=== PATIENT | female | born 1960 | race Caucasian/White ===

== ENCOUNTER 2017-05-27 09:12 | Emergency (ER) | payer SELFPAY ==
[2017-05-27 09:44] VITALS: BP 126/65
--- NOTE | 2017-05-27 10:10 | UC ---
Back Pain HPI - HPI Summary HPI Summary: she was picking up patient three days ago and had sudden right lateral back pain. She denies prior injury like this but did have sciatica in the past. no worrisome symptoms like radiation down the legs, weakness, numbness, saddle anesthesia. - History of Current Complaint Chief Complaint: UCBackPain Stated Complaint: MID/LOWER BACK PAIN WC Time Seen by Provider: 05/27/17 10:00 ?: No Onset/Duration: Sudden Onset, Lasting Days Timing: Constant Severity Initially: Moderate Severity Currently: Mild Back Pain: Is Discrete @ - right lateral mid back. Character: Dull, Aching Aggravating: Movement, Lifting Alleviating: Rest Associated Signs And Symptoms: Positive: Negative - Allergies/Home Medications Allergies/Adverse Reactions: Allergies Allergy/AdvReac Type Severity Reaction Status Date / Time No Known Allergies Allergy Verified 05/27/17 09:33 Home Medications: Home Medications Atorvastatin* [Lipitor*] 20 mg PO DAILY 05/27/17 [History Confirmed 05/27/17] PMH/Surg Hx/FS Hx/Imm Hx Previously Healthy: No - prior sciatica. - Surgical History Surgical History: Yes Surgery Procedure, Year, and Place: C SECTIONS THREE - Family History Known Family History: Positive: Hypertension, Diabetes - Social History Occupation: Employed Full-time Alcohol Use: None Substance Use Type: None Smoking Status (MU): Never Smoked Tobacco Review of Systems Musculoskeletal: Myalgia All Other Systems Reviewed And Are Negative: Yes Physical Exam Triage Information Reviewed: Yes Appearance: Well-Appearing, Obese Vital Signs: Initial Vital Signs Temp 97.6 F 05/27/17 09:29 Pulse 64 05/27/17 09:29 Resp 16 05/27/17 09:29 BP 126/65 05/27/17 09:29 Pulse Ox 98 05/27/17 09:29 Vital Signs Reviewed: Yes Eye Exam: Normal ENT Exam: Normal Neck exam: Normal Respiratory Exam: Normal Cardiovascular Exam: Normal Abdominal Exam: Normal Musculoskeletal Exam: Other - right paraspinal tenderness without midline spine tenderness. Neurological Exam: Normal Psychological Exam: Normal Back Pain Course/Dx - Course Course Of Treatment: right mid back muscle strain. tylenol and alleve whcih she already has. PT note written. - Differential Dx/Diagnosis Differential Diagnosis/HQI/PQRI: Aneurysm, Arthritis, Cauda Equina Syndrome, Compressive Cord Syndrome, Epidural Abscess, Fracture, Herniated Disc, Osteomyelitis, Renal Colic, Septic Arthritis, Strain, Sprain Provider Diagnoses: right back strain. Discharge - Discharge Plan Condition: Good Disposition: HOME Patient Education Materials: Low Back Strain (ED), Lower Back Exercises (ED) Forms: *Work Release Referrals: Val Lemons MD [Primary Care Provider] - If Needed
== END 2017-05-27 10:20 | disposition home or self-care (01) ==
LOC: UCCORT 09:12
DX: S39.012A Strain of muscle, fascia and tendon of lower back, initial encounter (principal); X50.9XXA Other and unspecified overexertion or strenuous movements or postures, initial encounter; Y93.F2 Activity, caregiving, lifting; Y92.9 Unspecified place or not applicable; Y99.0 Civilian activity done for income or pay; E66.9 Obesity, unspecified
CPT/HCPCS: 99212; G0463